=== PATIENT | female | born 1950 | race Caucasian/White ===

== ENCOUNTER → 2025-01-19 | Emergency (ER) | payer OTHER ==
[~2025-01-19] VITALS: Ht 167.6 cm; Wt 63.3 kg
[2025-01-19 16:48] VITALS: BP 129/84; PULSE 100; RESP 16; O2SAT 96
== END | disposition left against medical advice (07) ==
LOC: ER 16:21
DX: R06.02 Shortness of breath (principal); R05.9 Cough, unspecified; Z53.21 Procedure and treatment not carried out due to patient leaving prior to being seen by health care provider
CPT/HCPCS: 36600; 82805

== ENCOUNTER 2025-07-06 05:16 | Emergency (ER) | payer OTHER ==
[~2025-07-06] VITALS: Ht 172.7 cm; Wt 68.2 kg
[2025-07-06 05:35] VITALS: PULSE 93; RESP 18; TEMP 98.1; O2SAT 98
--- NOTE | 2025-07-06 05:47 | ECG ---
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
[2025-07-06 06:01] VITALS: BP 141/88; RESP 16; O2SAT 95
--- NOTE | 2025-07-06 06:06 | ECG ---
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
--- NOTE | 2025-07-06 06:35 | ED.PDOC ---
HPI Comments 75 y/o F, BIBA, with PMHx of AFib, HTN, ovarian cancer, and liver cirrhosis presents to the ED for CC of chest pain. EMS reports, patient is coming from home where she c/o non-radiating chest pain with associated symptoms of shortness of breath and nausea/vomiting onset, 1600 yesterday (07/06/25). Upon arrival to scene, patient was found to be hypertensive with a blood pressure of 167/103mmHg. Patient was given 0.4 mg of Nitro in route to the ED; expressed no relief of symptoms. Patient comments, that she does have liver cirrhosis with ascites and has abdominal ascites drained every other week; endorses last paracentesis to have been last Saturday (06/29/25). Patient denies dizziness, headache, fever, chills, or cough. No other symptoms or modifying factors present at this time. Chief Complaint: Chest Pain Time Seen by MD: 06:15 Primary Care Provider: monalisa Roa Notes: Nurses Notes, Turnstile Attendant Notes, Medications, Allergies Allergies: Coded Allergies: NO KNOWN ALLERGIES (Unverified , 01/19/25) Information Source: Patient, Emergency Med Personnel Mode of Arrival: EMS Severity: Moderate Timing: Hours Duration: Since onset Prehospital treatment: None Location: Substernal Radiation: No Radiation Onset: At Rest Cardiac Risk Factors: HTN PE Risk Factors: None Modifying Factors: Nothing Associated Signs and Symptoms: SOB, N/V Past Medical History PAST MEDICAL HISTORY: AFIB, Cancer, HTN, Liver Surgical History: Denies all surgeries DOCUMENT CLERK History: Denies all DOCUMENT CLERK Hx Family History Family History: Unknown Social History Smoker: Non-Smoker Alcohol: Denies ETOH Use Drugs: Denies Drug Use Lives In: Home Constitutional: denies: chills, diaphoresis, fatigue, fever, malaise, sweats, weakness, others EENTM: denies: blurred vision, double vision, ear bleeding, ear discharge, ear drainage, ear pain, ear ringing, eye pain, eye redness, hearing loss, mouth pain, mouth swelling, nasal discharge, nose bleeding, nose congestion, nose pain, photophobia, tearing, throat pain, throat swelling, voice changes, others Respiratory: reports: shortness of breath; denies: cough, hemoptysis, orth opnea, SOB at rest, SOB with excertion, stridor, wheezing, others Cardiovascular: reports: chest pain; denies: dizzy spells, diaphoresis, Dyspnea on exertion, edema, irregular heart beat, left arm pain, lightheadedness, palpitations, PND, syncope, others Gastrointestinal: reports: nausea, vomiting; denies: abdomen distended, abdominal pain, blood streaked bowels, constipated, diarrhea, dysphagia, diffi culty swallowing, hematemesis, melena, poor appetite, poor fluid intake, rectal bleeding, rectal pain, others Genitourinary: denies: abnormal vagina bleeding, burning, dyspareunia, dysuria, flank pain, frequency, hematuria, incontinence, pain, , vagina discharge, urgency, others Neurological: denies: dizziness, fainting, headache, left sided numbness, left sided weakness, numbness, paresthesia, pre-existing deficit, right sided numbness, right sided weakness, seizure, speech problems, tingling, tremors, weakness, others Musculoskeletal: denies: back pain, gout, joint pain, joint swelling, muscle pain, muscle stiffness, neck pain, others Integumetry: denies: bruises, change in color, change in hair/nails, dryness, laceration, lesions, lumps, rash, wounds, others Allergic/Immunocompromised: denies: Difficulty Healing, Frequent Infections, Hives, Itching, others Hematologic/Lymphatic: denies: anemia, blood clots, easy bleeding, easy bruising, swollen glands, others Endocrine: denies: excessive hunger, excessive sweating, excessive thirst, excessive urination, flushing, intolerance to cold, intolerance to heat, unexplained weight gain, unexplained weight loss, others Psychiatric: denies: anxiety, bipolar disorder, depression, hopeless, panic disorder, schizophrenia, sleepless, suicidal, others All Other Systems: Reviewed and Negative Physical Exam General Appearance: Moderate Distress HEENT: Normal ENT Inspection, Pharynx Normal, TMs Normal Neck: Full Range of Motion, Non-Tender, Normal, Normal Inspection Respiratory: Chest Non-Tender, Lungs Clear, No Accessory Muscle Use, No Respiratory Distress, Normal Breath Sounds Cardiovascular: No Edema, No JVD, No Murmur, No Gallop, Normal Peripheral Puls es, Regular Rate/Rhythm Breast Exam: Deferred Gastrointestinal: Distended Genitalia: Deferred Pelvic: Deferred Rectal: Deferred Extremities: No calf tenderness, Normal capillary refill, Normal inspection, Normal range of motion, Non-tender, No pedal edema Musculoskeletal : Apperance: Normal Neurologic: Alert, hospital orderly II-XII nml as Tested, No Motor Deficits, Normal Affect, Normal Mood, No Sensory Deficits Cerebellar Function: NOT DONE Reflexes: NOT DONE Skin: Dry, Normal Color, Warm Peripheral Pulses: 3+ Radial (R), 3+ Radial (L) Lymphatic: No Adenopathy Was a procedure done? Was a procedure done?: No CP Differential Dx Differential Diagnosis: A-fib, A-Flutter, Angina, Anxiety / Panic Attack, Atrial Dysrhythmia, Electrolyte Disorder, Pulmonary Embolus Differential Diagnosis: HTN Essential, HTN Accelerated Differential Diagnosis: Angina, Chest Wall Pain, Costochondritis X-Ray, Labs, Meds, VS Vital Signs Date Time Temp Pulse Resp B/P (MAP) Pulse Ox O2 Delivery O2 Flow Rate FiO2 07/06/25 08:00 89 07/06/25 07:58 93 Room Air* 0 21 07/06/25 07:30 89 07/06/25 06:05 93 07/06/25 06:01 80 16 141/88 (105) 95 07/06/25 05:35 93 18 98 Room Air* 0 21 07/06/25 05:35 98.1 93 18 167/103 (124) 98 98.1 07/06/25 05:26 98.1 93 18 167/103 98 98.1 07/06/25 05:17 99 Lab Test 07/06/25 06:28 07/06/25 05:20 Range/Units Sodium Level 137 136-145 mmol/L Potassium Level 3.8 3.5-5.1 mmol/L Chloride Level 104 98-107 mmol/L Carbon Dioxide Level 19 L 20-31 mmol/L Anion Gap 14 5-15 Blood Urea Nitrogen 6 L 9-23 mg/dL Creatinine 0.63 0.550-1.02 mg/dL Glomerular Filtration Rate Calc 91 >90 mL/min BUN/Creatinine Ratio 9.5 L 10.0-20.0 Serum Glucose 160 H 74-106 mg/dL Calcium Level 8.7 8.7-10.4 mg/dL Troponin I High Sensitivity 4 4 </=34 ng/L White Blood Count 4.6 4.4-10.8 10^3/uL Red Blood Count 4.44 4.0-5.20 10^6/uL Hemoglobin 13.0 12.2-16.2 g/dL Hematocrit 39.3 36.0-46.0 % Mean Corpuscular Volume 88.6 80.0-100.0 fL Mean Corpuscular Hemoglobin 29.3 28.0-32.0 pg Mean Corpuscular Hemoglobin Concent 33.0 32.0-36.0 g/dL Red Cell Distribution Width 15.6 H 11.8-14.3 % Platelet Count 252 140-450 10^3/uL Mean Platelet Volume 7.3 6.9-10.8 fL Neutrophils (%) (Auto) 89.6 H 37.0-80.0 % Lymphocytes (%) (Auto) 6.7 L 10.0-50.0 % Monocytes (%) (Auto) 3.4 0.0-12.0 % Eosinophils (%) (Auto) 0.0 0.0-7.0 % Basophils (%) (Auto) 0.3 0.0-2.0 % Neutrophils # (Auto) 4.1 1.6-8.6 10 ^3/uL Lymphocytes # (Auto) 0.3 L 0.4-5.4 10 ^3/uL Monocytes # (Auto) 0.2 0-1.3 10 ^3/uL Eosinophils # (Auto) 0 0-0.8 10 ^3/uL Basophils # (Auto) 0 0-0.2 10 ^3/uL Nucleated Red Blood Cells 0.0 % Prothrombin Time 11.3 9.3-11.8 sec Prothrombin Time INR 1.07 0.9-1.15 Activated Partial Thromboplast Time 29.6 24.5-34.5 SEC Patient alert. Came in because of chest pain shortness a breath. Abdomen is distended. Blood pressure elevated. She does have a history of liver cirrhosis. Possibly need paracentesis. Radiology consultation. Was given clonidine. Cardiac marker within normal limits. Reviewed her history. Explained to the patient. Continue monitoring. Time of 1ST Reevaluation: 06:45 Reevaluation 1ST: Unchanged Patient Education/Counseling: Diagnosis, Treatment Family Education/Counseling: No Family Present SEPSIS Sepsis Screen Date sepsis recognized/suspect: Jul 06, 2025 Time Sepsis recognized/suspect: 518 Recent Procedure: No On Antibiotic Therapy: No Respiratory Rate >20: No Heart Rate >90: Yes Temp<36 C (96.8 F) or >38.3 C: No SBP <90 or MAP <65 mmHG: No New Acute Mental Status Change: No Is the patient on CPAP, BIPAP,: No Physician Orders Electrocardigram (07/06/25 08:30) Urinalysis (07/06/25 06:36) Paracentesis (07/06/25 07:41) Echo 2d Mode Cardiac Dop (07/06/25 07:41) Vital Signs Date Time Temp Pulse Resp B/P (MAP) Pulse Ox O2 Delivery O2 Flow Rate FiO2 07/06/25 08:00 89 07/06/25 07:58 93 Room Air* 0 21 07/06/25 07:30 89 07/06/25 06:05 93 07/06/25 06:01 80 16 141/88 (105) 95 07/06/25 05:35 93 18 98 Room Air* 0 21 07/06/25 05:35 98.1 93 18 167/103 (124) 98 98.1 07/06/25 05:26 98.1 93 18 167/103 98 98.1 07/06/25 05:17 99 Laboratory Tests Test 07/06/25 05:20 White Blood Count 4.6 10^3/uL (4.4-10.8) Departure 1 Departure Time of Disposition: 07:06 Impression: Primary Impression: Cirrhosis of liver with ascites Qualified Codes: K74.60 - Unspecified cirrhosis of liver; R18.8 - Other ascites Additional Impression: Hypertensive urgency Disposition: ADMITTED INPATIENT Admit to: Med Surg Condition: Guarded Critical Care Note Critical Care Time?: Yes (90 min-critical care time only) Critical care comment: Paracentesis Stability Stability form required: No Heart Score Heart Score: Heart Score Response (Comments) Value History Moderate Suspicious 1 EKG N/A 0 Age >65 2 Risk Factors 1 or 2 risk factors 1 Troponin Normal limit 0 Total 4 I personally scribed for JASWANT ARROYO MD ([email or web address]) on 07/06/25 at 06:35. Electronically submitted by Philly Barrios ([email or web address]). I personally scribed for JASWANT ARROYO MD ([email or web address]) on 07/06/25 at 06:42. Electronically submitted by Philly Barrios ([email or web address]). I personally scribed for JASWANT ARROYO MD ([email or web address]) on 07/06/25 at 06:53. Electronically submitted by Philly Barrios ([email or web address]). JASWANT ARROYO MD Jul 06, 2025 06:35
[2025-07-06 07:26] LABS: Hematocrit 39.3 % (36.0-46.0); Hemoglobin 13.0 g/dL (12.2-16.2); Mean Corpuscular Hemoglobin 29.3 pg (28.0-32.0); Mean Corpuscular Volume 88.6 fL (80.0-100.0); Nucleated Red Blood Cells % 0.0 %
[2025-07-06 07:31] LABS: Chloride 104 mmol/L (98-107); Potassium 3.8 mmol/L (3.5-5.1); Sodium 137 mmol/L (136-145)
[2025-07-06 07:32] LABS: Anion Gap 14 (5-15)
[2025-07-06 07:37] LABS: BUN/Creatinine Ratio 9.5 (10.0-20.0)
[2025-07-06 07:40] LABS: Blood Urea Nitrogen 6 mg/dL (9-23); Calcium 8.7 mg/dL (8.7-10.4); Carbon Dioxide 19 mmol/L (20-31); Glucose 160 mg/dL (74-106)
[2025-07-06 07:43] LABS: INR 1.07 (0.9-1.15); Partial Thromboplastin Time 29.6 SEC (24.5-34.5); Prothrombin Time 11.3 sec (9.3-11.8)
[2025-07-06 07:58] VITALS: PULSE 93
[2025-07-06 08:00] VITALS: PULSE 89
== END 2025-07-06 11:52 | disposition left against medical advice (07) ==
LOC: ER 05:16 → EDBD 05:16 → ER 11:52
DX: K74.60 Unspecified cirrhosis of liver (principal); I16.0 Hypertensive urgency; I10 Essential (primary) hypertension; I48.91 Unspecified atrial fibrillation
CPT/HCPCS: 36415; 80048; 84484; 85025; 85610; 85730; 93005